=== PATIENT | female | born 1945 | race Caucasian/White ===

== ENCOUNTER 2017-01-01 17:48 | Emergency (ER) | payer MEDICARE, OTHER ==
[~2017-01-01] VITALS: Ht 157.5 cm; Wt 59.2 kg
[~2017-01-01 17:48] MED LIST: Z.0.NO CURRENT MEDS
[2017-01-01 17:58] VITALS: BP 158/92; PULSE 92; RESP 16; TEMP 99.6; O2SAT 99
[2017-01-01 19:13] VITALS: RESP 18; O2SAT 100
[2017-01-01] MEDS ORDERED: IPRA0.06 EACH NARE (20:09)
[2017-01-01] MEDS ORDERED: VENTAER INH (20:09)
--- NOTE | 2017-01-01 20:09 | PD ---
HPI Chief Complaint: Respiratory Symptoms Time Seen by Provider: 20:05 Travel History International Travel<30 days: No Contact w/Intl Traveler<30days: No Traveled to known affect area: No History of Present Illness HPI Patient is a 71-year-old female presenting to emergency for evaluation of a cough and nasal congestion. Patient states she has had these symptoms for 2 days. She denies any fever, chills, nausea, vomiting, chest pain, shortness breath, headache. Patient reports a history of asthma but has not used her inhaler in quite some time. She attempted to get in with her primary doctor but the close earlier Wednesday afternoons. PFSH Past Medical History Asthma: Yes Anxiety: Yes Cardiovascular Problems: No Diminished Hearing: No Respiratory: Yes (ASTHMA) Tetanus Vaccination: Unknown ?: Not Menopausal: Yes Past Surgical History Section: Yes Other Surgery: Yes (BREAST IMPLANTS. BILAT FEET-BUNIONECTOMY, LEFT KNEE) Family History Family Myocardial Infarction: Yes Social History Alcohol Use: No Tobacco Use: No (QUIT 1979) Substance Use: No Allergies-Medications (Allergen,Severity, Reaction): Coded Allergies: Codeine (Verified Allergy, Severe, Respiratory Failure, 01/01/17) Benadryl (Verified Allergy, Intermediate, palpatations, 01/01/17) Epinephrine (Verified Allergy, Intermediate, Tachycardia, 01/01/17) Iodine (Verified Allergy, Intermediate, Rash, 01/01/17) Sulfa (Verified Allergy, Intermediate, Rash, 01/01/17) Reported Meds & Prescriptions Reported Meds & Active Scripts Active No Active Prescriptions or Reported Medications Review of Systems Except as stated in HPI: all other systems reviewed are Neg HENT: Positive: Rhinitis, Congestion Respiratory: Positive: Cough Physical Exam Narrative GENERAL: Well-nourished, well-developed patient. SKIN: Warm and dry. HEAD: Normocephalic. EYES: No scleral icterus. No injection or drainage. ENT: Mucosa pink and moist. No erythema or exudates. No uvular edema. No uvular , palatal, or tonsillar deviation. Airway patent. Nasal turbinates appear edematous without nasal blood, purulent drainage or septal hematoma. Cobblestone appearance to posterior pharynx. NECK: Supple, trachea midline. No JVD or lymphadenopathy. CARDIOVASCULAR: Regular rate and rhythm without murmurs, gallops, or rubs. RESPIRATORY: Breath sounds equal bilaterally. No accessory muscle use. GASTROINTESTINAL: Abdomen soft, non-tender, nondistended. MUSCULOSKELETAL: No cyanosis, or edema. BACK: Nontender without obvious deformity. No CVA tenderness. Data Data Last Documented VS Vital Signs Date Time Temp Pulse Resp B/P Pulse Ox O2 Delivery O2 Flow Rate FiO2 01/01/17 19:15 18 100 Room Air 01/01/17 17:58 99.6 92 158/92 [facility] Medical Decision Making Medical Screen Exam Complete: Yes Emergency Medical Condition: Yes Interpretation(s) Vital Signs Date Time Temp Pulse Resp B/P Pulse Ox O2 Delivery O2 Flow Rate FiO2 01/01/17 19:15 18 100 Room Air 01/01/17 19:13 18 100 01/01/17 17:58 99.6 92 16 158/92 99 Differential Diagnosis Viral URI versus bronchitis versus pneumonia versus other Narrative Course Patient is 71-year-old female presenting to the emergency department for evaluation of cough and nasal congestion for the last 2 days. Physical examination is most consistent with a viral URI. Patient's vital signs are stable, she is afebrile, her lung sounds are clear. She was encouraged to continue symptom management. Patient was encouraged to follow-up with her primary doctor. She was encouraged to return to emergency department for any new or worsening symptoms. Patient verbalized understanding of these instructions. Patient is stable for discharge. Diagnosis Primary Impression: Viral URI with cough Referrals: Primary Care Physician Patient Instructions: General Instructions, Upper Respiratory Infection (ED) Additional Instructions: Follow-up with her primary doctor Continue symptomatic management Return to emergency department for any new or worsening symptoms Med/Other Pt SpecificInfo: Prescription(s) given Scripts Albuterol 18 GM Inh (Ventolin Hfa 18 GM Inh)90 Mcg/Act Aer2 Puff INH Q4-6H PRN ( SHORTNESS OF BREATH) #1 INHALER Ref 0 Prov:Michelle Chanel 01/01/17 Ipratropium Nasal 0.06% Spray1 [place] EACH NARE QID #1 BOTTLE Ref 0 Prov:Michelel Chanel 01/01/17 Disposition: 01 DISCHARGE HOME Condition: Stable Michelle Chanel Jan 01, 2017 20:09
[2017-01-01 20:20] VITALS: BP 136/84
[2017-02-15] MEDS ORDERED: VENTAER INH (12:33)
== END 2017-01-01 20:21 | disposition home or self-care (01) ==
LOC: PHED 17:48 → PHEFT 20:21
DX: J06.9 Acute upper respiratory infection, unspecified (principal); J45.909 Unspecified asthma, uncomplicated; Z87.891 Personal history of nicotine dependence
CPT/HCPCS: 99283

== ENCOUNTER → 2017-05-03 | Outpatient (CLI) | payer OTHER ==
[~2017-05-03] MED LIST changes: +IPRA0.06 EACH NARE; +VENTAER INH; -Z.0.NO CURRENT MEDS
== END ==
LOC: HRSP 12:59
PROVIDERS: ATTEND Internal Medicine
DX: J47.9 Bronchiectasis, uncomplicated (principal)
CPT/HCPCS: 94060; 94620; 94726; 94729; 95012